=== PATIENT | male | born 1960 | race Caucasian/White ===

== ENCOUNTER 2020-11-12 13:51 | Inpatient (IN) | payer BC ==
[~2020-11-12] VITALS: Ht 182.9 cm; Wt 103.2 kg
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
--- NOTE | 2020-11-12 15:27 | NUR ---
ULTRASOUND IN ROOM
[2020-11-12 15:34] LABS: BASOPHILS % (AUTO) 0 % (0-1); EOSINOPHILS % (AUTO) 1 % (1-7); LYMPHOCYTES % (AUTO) 15 % (22-44); MEAN CORPUSCULAR HGB CONC 33.8 g/dL (33.2-36.2); MEAN PLATELET VOLUME 7.5 fL (7.4-10.4); MONOCYTES % (AUTO) 10 % (2-9); NEUTROPHILS % (AUTO) 73 % (42-75); PLATELET COUNT 231 x10^3/uL (130-400); RED BLOOD COUNT 4.66 x10^6/uL (4.38-5.82); RED CELL DISTRIBUTION WIDTH 13.8 % (9.4-14.8)
[2020-11-12 15:46] LABS: ALANINE AMINOTRANSFERASE 21 U/L (12-78); ALBUMIN 3.6 g/dL (3.4-5.0); ANION GAP 5 mmol/L (5-15); CALCIUM 8.5 mg/dL (8.5-10.1); CHLORIDE 105 mmol/L (98-107); CREATININE 1.14 mg/dL (0.7-1.3)
[2020-11-12 15:48] LABS: ALKALINE PHOSPHATASE 83 U/L (45-117); BILIRUBIN,TOTAL 0.9 mg/dL (0.2-1.0); TOTAL PROTEIN 7.6 g/dL (6.4-8.2)
--- NOTE | 2020-11-12 17:00 | NUR ---
Report from eliana chen
[2020-11-12 17:10] LABS: PROTHROMBIN TIME 10.7 Seconds (9.6-11.5)
[2020-11-12] MEDS ORDERED: ENALAPRILAT 1.25 MG/ML, 2ML IVPush PRN (17:30)
[2020-11-12] MEDS ORDERED: ONDANSETRON 2MG/ML, 2ML IVPush PRN (17:30)
[2020-11-12] MEDS ORDERED: ONDANSETRON ODT 4 MG PO PRN (17:30)
[2020-11-12] MEDS ORDERED: PLEASE ENTER WEIGHT MC SCH (18:00)
--- NOTE | 2020-11-12 18:02 | NUR ---
piv placed, attempted to complete med recc-> interrupted by Dr. Ortiz (vascular surgeon) exam Med recc held as md exam more important
[2020-11-12 19:22] VITALS: BP 150/81
[2020-11-12] MEDS: CEFAZOLIN PMX 1GM/50ML 50 ML IV SCH (21:59)
[2020-11-12] MEDS: PREGABALIN 100 MG CAPSULE PO SCH (21:59)
[2020-11-12] MEDS: ATORVASTATIN 20 MG TABLET PO SCH (21:59)
[2020-11-12] MEDS: INSULIN GLARGINE 100 UNITS/ML, PEN SQ-INSULIN SCH (22:20)
[2020-11-12] MEDS: ASPIRIN 325 MG TABLET PO PRN (23:36)
[2020-11-13 00:06] VITALS: BP 148/87
[2020-11-13] MEDS ORDERED: LIRA0.6P SC (01:11)
[2020-11-13] MEDS ORDERED: OLME20TA21 PO (01:11)
[2020-11-13] MEDS ORDERED: [UNRECOGNIZED DRUG - CODE] PO (01:11)
[2020-11-13] MEDS ORDERED: INSU100I34 SC (01:11)
[2020-11-13] MEDS ORDERED: PREG100C PO (01:11)
[2020-11-13] MEDS ORDERED: SEMA0.25 SC (01:11)
[2020-11-13] MEDS ORDERED: METF10007 PO (01:11)
[2020-11-13] MEDS ORDERED: CLOP75TA52 PO (01:11)
[2020-11-13] MEDS ORDERED: ATOR20TA86 PO (01:11)
[2020-11-13] MEDS ORDERED: BUPR75TA6 PO (01:12)
[2020-11-13 05:34] LABS: BASOPHILS % (AUTO) 0 % (0-1); EOSINOPHILS % (AUTO) 1 % (1-7); LYMPHOCYTES % (AUTO) 17 % (22-44); MEAN CORPUSCULAR HEMOGLOBIN 32.6 pg (27.5-34.5); MEAN PLATELET VOLUME 7.9 fL (7.4-10.4); MONOCYTES % (AUTO) 10 % (2-9); NEUTROPHILS % (AUTO) 72 % (42-75); PLATELET COUNT 231 x10^3/uL (130-400); RED BLOOD COUNT 4.73 x10^6/uL (4.38-5.82); RED CELL DISTRIBUTION WIDTH 13.8 % (9.4-14.8)
[2020-11-13 05:49] LABS: ANION GAP 8 mmol/L (5-15); CALCIUM 8.7 mg/dL (8.5-10.1); CHLORIDE 104 mmol/L (98-107)
[2020-11-13 05:51] LABS: CREATININE 1.07 mg/dL (0.7-1.3)
[2020-11-13] MEDS: CEFAZOLIN PMX 1GM/50ML 50 ML IV SCH ×3 (05:58→20:46)
[2020-11-13 06:53] VITALS: BP 144/79
[2020-11-13] MEDS: INSULIN LISPRO 100 UNITS/ML, PEN SQ-INSULIN SCH ×3 (07:40→17:10)
[2020-11-13] MEDS: PREGABALIN 100 MG CAPSULE PO SCH ×2 (09:00→20:46)
[2020-11-13] MEDS: LOSARTAN 25MG TABLET PO SCH (10:33)
[2020-11-13] MEDS ORDERED: LIDOCAINE 2%, 20ML ONE (12:00)
[2020-11-13] MEDS ORDERED: FENTANYL PF 100 MCG/2ML ONE ×2 (12:12)
[2020-11-13] MEDS ORDERED: HEPARIN 1,000 UNITS/ML, 10ML ONE (12:12)
[2020-11-13] MEDS ORDERED: NALOXONE 1 MG/ML, 2ML ONE (12:12)
[2020-11-13] MEDS ORDERED: MIDAZOLAM 1 MG/ML, 5ML ONE (12:12)
[2020-11-13] MEDS ORDERED: FLUMAZENIL 0.1 MG/1 ML, 5ML ONE (12:12)
[2020-11-13 13:34] VITALS: BP 115/82
[2020-11-13] MEDS: BUPROPION 75 MG TABLET PO SCH (16:38)
[2020-11-13] MEDS: CLOPIDOGREL 75 MG TABLET PO SCH (16:38)
[2020-11-13] MEDS: ACETAMINOPHEN 325 MG TABLET PO PRN (19:31)
[2020-11-13 19:43] VITALS: BP 131/76
[2020-11-13] MEDS: ATORVASTATIN 20 MG TABLET PO SCH (20:46)
[2020-11-13] MEDS: INSULIN GLARGINE 100 UNITS/ML, PEN SQ-INSULIN SCH (21:01)
[2020-11-14] MEDS: ACETAMINOPHEN 325 MG TABLET PO PRN ×2 (01:34→16:24)
[2020-11-14 01:35] VITALS: BP 123/76
[2020-11-14] MEDS: CEFAZOLIN PMX 1GM/50ML 50 ML IV SCH ×3 (05:31→21:02)
[2020-11-14 06:58] VITALS: BP 138/81
[2020-11-14] MEDS: INSULIN LISPRO 100 UNITS/ML, PEN SQ-INSULIN SCH ×3 (07:24→16:20)
[2020-11-14] MEDS: BUPROPION 75 MG TABLET PO SCH (07:54)
[2020-11-14] MEDS: CLOPIDOGREL 75 MG TABLET PO SCH (07:54)
[2020-11-14] MEDS: LOSARTAN 25MG TABLET PO SCH (07:54)
[2020-11-14] MEDS: PREGABALIN 100 MG CAPSULE PO SCH ×2 (07:54→21:02)
[2020-11-14] MEDS: ASPIRIN 325 MG TABLET PO PRN ×2 (07:55→21:02)
[2020-11-14 14:18] VITALS: BP 131/83
[2020-11-14 19:26] VITALS: BP 127/78
[2020-11-14] MEDS: ATORVASTATIN 20 MG TABLET PO SCH (21:02)
[2020-11-14] MEDS: INSULIN GLARGINE 100 UNITS/ML, PEN SQ-INSULIN SCH (21:11)
[2020-11-15 00:31] VITALS: BP 148/76
[2020-11-15] MEDS: CEFAZOLIN PMX 1GM/50ML 50 ML IV SCH (04:52)
[2020-11-15 07:19] VITALS: BP 146/87
[2020-11-15] MEDS: INSULIN LISPRO 100 UNITS/ML, PEN SQ-INSULIN SCH ×2 (08:21→12:16)
[2020-11-15] MEDS: LOSARTAN 25MG TABLET PO SCH (08:22)
[2020-11-15] MEDS: BUPROPION 75 MG TABLET PO SCH (08:22)
[2020-11-15] MEDS: CLOPIDOGREL 75 MG TABLET PO SCH (08:22)
[2020-11-15] MEDS: PREGABALIN 100 MG CAPSULE PO SCH (08:23)
[2020-11-15] MEDS: ACETAMINOPHEN 325 MG TABLET PO PRN (08:35)
== END 2020-11-15 12:52 | disposition home or self-care (01) | DRG 300 ==
LOC: ED 14:40 → EDIP 16:47 → SUATTDRO 16:51 → 3N 18:34 → DCLOUNGE 11-15 12:49
PROVIDERS: ADMIT Hospitalist; ATTEND Hospitalist
PROC: B41D1ZZ Fluoroscopy of Aorta and Bilateral Lower Extremity Arteries using Low Osmolar Contrast (ICD-10-PCS; principal; 2020-11-13)
DX: I74.5 Embolism and thrombosis of iliac artery (principal); L03.115 Cellulitis of right lower limb; I25.10 Atherosclerotic heart disease of native coronary artery without angina pectoris; E11.51 Type 2 diabetes mellitus with diabetic peripheral angiopathy without gangrene; E78.5 Hyperlipidemia, unspecified; G47.00 Insomnia, unspecified; I10 Essential (primary) hypertension; I70.221 Atherosclerosis of native arteries of extremities with rest pain, right leg; Z79.4 Long term (current) use of insulin; Z95.1 Presence of aortocoronary bypass graft; E11.42 Type 2 diabetes mellitus with diabetic polyneuropathy
CPT/HCPCS: 36415; 99285; J3490; 36200; 75630; 76937; 80048; 80053; 82962; 83036; 85025; 85610; 85730; 93970; 99156; 99157; C1894; G0378; J0690; J1644; J2250; J3010; C1751; C1769; J1815; J2310